=== PATIENT | male | born 1950 | race Caucasian/White ===

== ENCOUNTER → 2019-05-23 | Outpatient (REF) | payer MEDICARE, BC ==
[~2019-05-23] MED LIST: /BACIOPOI TOP; /CIPR75TA OR; ACET500C OR; AMPI500C OR; ASPI81TA83 OR; ASPI81TA85 PO; AZOPT OU; BRIM0.2S OU; CALC1TAB27 PO; CALCCHW12 OR; CALCIUM 600 MG PO; CALCIUM OR; CEFD1CAP8 PO; CERACRE EX; CERAVE TOP; CLOBETASOL TOP; FLUOROURACIL; FOSA35TA OR; LATA0.0013 OU; LEFL20TA PO; LEFLUNOMIDE; LOPR50TA OR; METO1TAB63 PO; METR500T10 PO; MUPIROCIN OINTMENT TOP; NEXI1CAP3 OR; NEXI1CAP3 PO; NEXI40CA PO; ONDA-1 OR; OPTI0.5D5 OU; PRED5TA PO; PRED5TAB OR; PROG1CAP10 PO; PROG1CAP2 OR; PROG1CAP2 PO; REFR1DRO6 OU; SILD50TA OR; SIMV40TA2 OR; SIMV40TA2 PO; TUMS500C PO; VIT D 2000 OR; VIT D OR; VIT D PO; VIT D3 PO; VITA-122 PO; XALATAN OU; [UNRECOGNIZED DRUG - CODE] OU; [UNRECOGNIZED DRUG - CODE] TOP; [UNRECOGNIZED DRUG - OTHER] TOP
== END ==
LOC: M LAB REF 10:54
PROVIDERS: ATTEND Physician Assistant
DX: J02.9 Acute pharyngitis, unspecified (principal)

== ENCOUNTER → 2019-07-10 | Outpatient (REF) | payer MEDICARE, BC ==
[~2019-07-10] MED LIST changes: -SIMV40TA2 PO; +SIMV40TA20 PO
== END ==
LOC: M LAB REF 18:37
PROVIDERS: ATTEND Dermatology
DX: D23.62 Other benign neoplasm of skin of left upper limb, including shoulder (principal)
CPT/HCPCS: 11102; 17000; 17003; 88305; 96574; G0463

== ENCOUNTER → 2019-08-20 | Outpatient (REF) | payer MEDICARE, BC ==
[2019-08-20 13:46] LABS: CHOLESTEROL RISK RATIO 3.657 (<5)
== END ==
LOC: M LAB REF 12:55
PROVIDERS: ATTEND Internal Medicine Nephrology
DX: E78.00 Pure hypercholesterolemia, unspecified (principal); Z94.0 Kidney transplant status

== ENCOUNTER → 2019-12-15 | Outpatient (REF) | payer MEDICARE, BC ==
[~2019-12-15] MED LIST changes: +PROG1CAP11 PO; -PROG1CAP2 PO
== END ==
LOC: M LAB REF 17:48
PROVIDERS: ATTEND Dermatology
DX: C44.529 Squamous cell carcinoma of skin of other part of trunk (principal); D04.5 Carcinoma in situ of skin of trunk; C44.629 Squamous cell carcinoma of skin of left upper limb, including shoulder; D04.62 Carcinoma in situ of skin of left upper limb, including shoulder
CPT/HCPCS: 11102; 11103; 17110; 88305; G0463

== ENCOUNTER → 2019-12-21 | Outpatient (REF) | payer MEDICARE, BC ==
[~2019-12-21] MED LIST changes: -ASPI81TA85 PO; +ASPI81TA86 PO
== END ==
LOC: M LAB REF 16:49
PROVIDERS: ATTEND Internal Medicine Nephrology
DX: E78.00 Pure hypercholesterolemia, unspecified (principal); Z94.0 Kidney transplant status

== ENCOUNTER → 2020-01-07 | Outpatient (REF) | payer MEDICARE, BC | LOC: M LAB REF 10:54 | PROVIDERS: ATTEND Dermatology | DX: D04.62 Carcinoma in situ of skin of left upper limb, including shoulder (principal); L90.5 Scar conditions and fibrosis of skin ==

== ENCOUNTER → 2020-02-25 | Outpatient (CLI) | payer MEDICARE, BC ==
--- NOTE | 2020-03-04 15:38 | REP ---
BILATERAL LOWER EXTREMITY ARTERIAL DOPPLER ULTRASOUND HISTORY: Atherosclerosis. FINDINGS: Ankle brachial indices could not be achieved due to noncompressible vessels. [id number] multifocal plaquing is observed. In the right lower extremity, monophasic waveforms are noted a that tibioperoneal trunk and below. The right posterior tibial artery is occluded distally with revascularization. On the left, there is monophasic waveforms observed at and below the distal superficial femoral artery. A trickle of flow seen in the distal posterior tibial artery with very heavily calcified vessels. BILATERAL LOWER EXTREMITY ARTERIAL DOPPLER VELOCITY PSV RIGHT (cm/s) PSV LEFT (cm/s) SANDWICH PEDDLER 88 67 Profunda 67 60 Proximal SFA 69 83 Mid-SFA 114 72 Distal SFA 97 71 Popliteal 51 58 Proximal MARIBELL 27 22 Tibioperoneal trunk 49 80 Proximal SUSTAINABLE DEVELOPMENT POLICY ANALYST 44 46 Distal SUSTAINABLE DEVELOPMENT POLICY ANALYST Occluded and revascularized 30 Distal MARIBELL 60 84 MTDD
== END ==
LOC: M RAD 10:21
PROVIDERS: ATTEND Physician Assistant
DX: R09.89 Other specified symptoms and signs involving the circulatory and respiratory systems (principal); I70.203 Unspecified atherosclerosis of native arteries of extremities, bilateral legs; Z95.828 Presence of other vascular implants and grafts

== ENCOUNTER → 2020-03-25 | Outpatient (REF) | payer MEDICARE, BC | LOC: M LAB REF 17:28 | PROVIDERS: ATTEND Dermatology | DX: L90.5 Scar conditions and fibrosis of skin (principal) ==

== ENCOUNTER → 2020-04-06 | Outpatient (REF) | payer MEDICARE, BC | LOC: M LAB REF 15:06 | PROVIDERS: ATTEND Dermatology | DX: L57.0 Actinic keratosis (principal) ==

== ENCOUNTER → 2020-04-28 | Outpatient (REF) | payer MEDICARE, BC | LOC: M LAB REF 16:51 | PROVIDERS: ATTEND Internal Medicine Nephrology | DX: E78.00 Pure hypercholesterolemia, unspecified (principal); Z94.0 Kidney transplant status ==

== ENCOUNTER → 2020-05-31 | Outpatient (CLI) | payer MEDICARE, BC ==
[2020-05-31 11:32] LABS: HEMATOCRIT 45.3 % (42.0-52.0); HEMOGLOBIN 14.9 g/dl (13.5-17.5); MEAN CORPUSCULAR HEMOGLOBIN 30.2 pg (27.0-33.0); MEAN CORPUSCULAR HGB CONC 32.9 g/dl (32.0-36.5); MEAN CORPUSCULAR VOLUME 91.7 fl (80.0-96.0); PLATELET COUNT, AUTOMATED 258 10^3/uL (150-450); RED BLOOD COUNT 4.94 10^6/uL (4.30-6.10)
[2020-05-31 11:56] LABS: ALBUMIN 3.9 GM/DL (3.2-5.2); BILIRUBIN,DIRECT 0.2 MG/DL (0.0-0.2); BILIRUBIN,TOTAL 0.7 MG/DL (0.2-1.0); TOTAL PROTEIN 7.1 GM/DL (6.4-8.2)
== END ==
LOC: M WUC 08:04
PROVIDERS: ATTEND Dermatology
DX: D84.9 Immunodeficiency, unspecified (principal); Z79.899 Other long term (current) drug therapy
CPT/HCPCS: 36415; 80076; 84478; 85027; G0463

== ENCOUNTER → 2020-06-22 | Outpatient (REF) | payer MEDICARE, BC | LOC: M LAB REF 13:55 | PROVIDERS: ATTEND Dermatology | DX: C44.729 Squamous cell carcinoma of skin of left lower limb, including hip (principal) | CPT/HCPCS: 11102; 88305; 88342; G0463 ==

== ENCOUNTER → 2020-06-30 | Outpatient (CLI) | payer MEDICARE, BC ==
[2020-06-30 09:42] LABS: HEMATOCRIT 44.4 % (42.0-52.0); HEMOGLOBIN 14.5 g/dl (13.5-17.5); MEAN CORPUSCULAR HEMOGLOBIN 30.2 pg (27.0-33.0); MEAN CORPUSCULAR HGB CONC 32.7 g/dl (32.0-36.5); MEAN CORPUSCULAR VOLUME 92.5 fl (80.0-96.0); PLATELET COUNT, AUTOMATED 220 10^3/uL (150-450); WHITE BLOOD COUNT 9.7 10^3/uL (4.0-10.0)
[2020-06-30 09:50] LABS: ALBUMIN 3.6 GM/DL (3.2-5.2); BILIRUBIN,DIRECT 0.2 MG/DL (0.0-0.2); BILIRUBIN,TOTAL 0.8 MG/DL (0.2-1.0); TOTAL PROTEIN 6.2 GM/DL (6.4-8.2)
== END ==
LOC: M WUC 08:02
PROVIDERS: ATTEND Dermatology
DX: Z85.828 Personal history of other malignant neoplasm of skin (principal); Z79.899 Other long term (current) drug therapy

== ENCOUNTER → 2020-07-12 | Outpatient (REF) | payer MEDICARE, BC | LOC: M LAB REF 14:28 | PROVIDERS: ATTEND Dermatology | DX: C44.729 Squamous cell carcinoma of skin of left lower limb, including hip (principal) ==

== ENCOUNTER → 2020-07-29 | Outpatient (REF) | payer MEDICARE, BC | LOC: M LAB REF 17:05 | PROVIDERS: ATTEND Internal Medicine Nephrology | DX: E78.00 Pure hypercholesterolemia, unspecified (principal); Z94.0 Kidney transplant status ==

== ENCOUNTER 2020-10-11 08:31 | Observation (INO) | payer MEDICARE, BC ==
[~2020-10-11] VITALS: Ht 177.8 cm; Wt 105.0 kg
[2020-10-11 09:14] LABS: BASO % 0.4 % (0.0-1.0); EOS # 0.2 10^3/uL (0.0-0.5); HEMATOCRIT 43.9 % (42.0-52.0); HEMOGLOBIN 14.6 g/dl (13.5-17.5); LYMPH # 0.9 10^3/uL (1.5-5.0); MEAN CORPUSCULAR HEMOGLOBIN 31.2 pg (27.0-33.0); MEAN CORPUSCULAR HGB CONC 33.3 g/dl (32.0-36.5); MEAN CORPUSCULAR VOLUME 93.8 fl (80.0-96.0); MONO # 1.1 10^3/uL (0.0-0.8); MONO % 9.5 % (2.0-8.0); NEUTROPHILS # 8.9 10^3/uL (1.5-8.5); NEUTROPHILS % 79.4 % (36.0-66.0); PLATELET COUNT, AUTOMATED 215 10^3/uL (150-450); RED BLOOD COUNT 4.68 10^6/uL (4.30-6.10); WHITE BLOOD COUNT 11.2 10^3/uL (4.0-10.0)
--- NOTE | 2020-10-11 09:34 | REP ---
INDICATION: trauma. COMPARISON: None. TECHNIQUE: Axial CT images with multiplanar reformations. FINDINGS: No acute bleed or fracture. Ventricles, cisterns and sulci within normal limits. No mass effect or midline shift. No abnormal fluid collections. Paranasal sinuses and mastoid air cells are clear. Note made of high density material superficially around the temporalis muscles bilaterally. This may represent surgical material. There is a focus of skin thickening and increased density in the left occipital lobe region, which is cutaneous and subcutaneous. This is best seen on image 20 series 201, measures about 8mm by 3mm). Dermal malignancy such as melanoma may have a similar appearance. IMPRESSION: 1. No acute or posttraumatic findings. 2. Note made of a focus of skin thickening of the scalp as described above. Dermal malignancy such as melanoma may have a similar appearance. Clinical correlation suggested. <Electronically signed by Bharat Hussein > 10/11/20 [id number]
[2020-10-11 09:46] LABS: BLOOD UREA NITROGEN 37 MG/DL (7-18); CALCIUM LEVEL 9.3 MG/DL (8.8-10.2); CARBON DIOXIDE LEVEL 32 MEQ/L (21-32); CHLORIDE LEVEL 106 MEQ/L (98-107); CREATININE FOR GFR 2.09 MG/DL (0.70-1.30); GLOMERULAR FILTRATION RATE 33.8 (>49); GLUCOSE, FASTING 107 MG/DL (70-100); MAGNESIUM LEVEL 3.1 MG/DL (1.8-2.4); POTASSIUM SERUM 3.9 MEQ/L (3.5-5.1); SODIUM LEVEL 141 MEQ/L (136-145)
[2020-10-11] MEDS ORDERED: BOOSTRIX/ADACEL VACCINE (DIPHTH/PERTUSS/ACELL/TETANUS) 0.5ML SYR IM ONE (09:50)
[2020-10-11 10:00] LABS: CK-MB VALUE MASS 1.4 NG/ML (<3.6); CPK CREATINE PHOSPHOKINASE 62 U/L (39-308); MB/CK RELATIVE INDEX 2.26 (< OR =4)
[2020-10-11] MEDS ORDERED: BACITRACIN OINTMENT 30GM TUBE TOP PRN (10:00)
[2020-10-11 10:26] LABS: RSV AMPLIFICATION NEGATIVE (NEGATIVE)
[2020-10-11] MEDS ORDERED: NS 500 ML IV ONE (10:30)
[2020-10-11 10:31] LABS: TROPONIN I < 0.02 NG/ML (< 0.10)
[2020-10-11] MEDS ORDERED: FURO20TA2 PO ×2 (10:45)
[2020-10-11] MEDS ORDERED: OMEP-218 PO (10:45)
[2020-10-11] MEDS ORDERED: AMLO1TAB24 PO (10:45)
[2020-10-11] MEDS ORDERED: SPIR-10 PO (10:45)
[2020-10-11] MEDS ORDERED: ROCA0.5C PO (10:45)
[2020-10-11] MEDS ORDERED: BRIM0.2S13 OU (10:45)
[2020-10-11] MEDS ORDERED: LATA0.0015 OU (10:45)
[2020-10-11] MEDS ORDERED: METO50TA7 PO (10:45)
[2020-10-11] MEDS ORDERED: TIMO0.5S29 OU (10:45)
[2020-10-11] MEDS ORDERED: TACR1CAP3 PO (10:45)
[2020-10-11] MEDS ORDERED: TADA5TAB PO (10:45)
[2020-10-11] MEDS ORDERED: ASPI81TA27 PO (10:45)
[2020-10-11] MEDS ORDERED: D31000TA2 PO (10:45)
[2020-10-11] MEDS ORDERED: PRED5TA PO (10:46)
[2020-10-11] MEDS ORDERED: GLUCOSE 4GM CHEW TABLET PO PRN (12:45)
[2020-10-11] MEDS ORDERED: DEXTROSE 50% 50 ML SYRINGE IV PRN (12:45)
[2020-10-11] MEDS ORDERED: GLUCAGON INJ 1MG VIAL SC PRN (12:45)
[2020-10-11 15:12] VITALS: BP_SYST 108; BP_SYST 120; BP_SYST 98; BP_DIAS 38; BP_DIAS 50; BP_DIAS 52
[2020-10-11] MEDS ORDERED: HumaLOG INSULIN (NovoLOG) PER UNIT SC SCH ×2 (17:30→21:00)
--- NOTE | 2020-10-11 17:31 | REP ---
INDICATION: WILLIAM? history of renal and pancreas transplant. COMPARISON: None. TECHNIQUE: Multiple sonographic images of the kidneys. Study includes Doppler images. Patient reportedly has a transplant kidney on the left. The right [place] kidney measures 5.2 x 2.0 x 2.8 cm. The left [place] kidney measures 5.9 x 2.2 x 2.8 cm. The [place] kidneys are markedly atrophic. The transplant kidney measures 10.8 x 6.0 x 5.8 cm and is normal size. There is mild hydronephrosis in the transplanted kidney. There is no hydroureter. There is no calculus in the transplant kidney There is no solid or cystic mass in the transplant kidney. With color Doppler ultrasound there is vascular flow in the transplant kidney cortex. There are no calculi or solid or cystic masses in the [place] kidneys. There is no hydronephrosis in the [place] kidneys. Bladder: No bladder wall polyps or nodules are identified. FINDINGS: The [place] right and left kidneys are markedly atrophic but otherwise unremarkable. There is a transplant kidney on the left that is normal size and otherwise unremarkable. There is a mild hydronephrosis in the transplant kidney. IMPRESSION: There is a transplant kidney on the left as described. There is mild hydronephrosis of the transplant kidney. The [place] kidneys are markedly atrophic. <Electronically signed by Grant Zamorano > 10/11/20 [id number]
--- NOTE | 2020-10-11 17:59 | ECGEPIP ---
[facility] - ED Test Date: 2020-10-11 Pat Name: KWAME FRANCIS Department: Room: - Gender: Male Manager Urology: Arnaud WOOD : 1950 Requested By: Mayra Granados Order Number: [id number] Reading MD: Mayra Granados Measurements Intervals [place] Rate: 61 P: 58 MO: 168 QRS: -4 QRSD: 74 T: -1 QT: 462 QTc: 465 Interpretive Statements Normal sinus rhythm Inferior infarct , age undetermined prolonged qtc no prior Electronically Signed on 10-11-2020 17:59:26 EDT by Mayra Granados
[2020-10-11] MEDS: TIMOLOL MALEATE 0.5% OPHTH SOLN 5 ML OU SCH (18:16)
[2020-10-11] MEDS: BRIMONIDINE 0.15% OPHTH SOLN 5 ML OU SCH (18:16)
[2020-10-11] MEDS ORDERED: NS 1,000 ML IV SCH (18:20)
--- NOTE | 2020-10-11 18:57 | HPEPDOC ---
General Date of Admission Oct 11, 2020 at 12:32 Date of Service: Oct 11, 2020 Chief Complaint The patient is a 69-year-old male admitted with a reason for visit of Syncope, Face Lacerations. Source: Patient, Family History of Present Illness Mr. Hayes is a 69 year old male with hypertension and kidney and pancreatic transplantation who presents with syncope. Patient has been feeling well up to today. He was preparing to use the toilet when he suddenly blacked out and woke up on the ground. His heard him fall and had him stay on the ground as she called for EMS. Patient does remember lightheadedness and dizziness before the fall. When EMS arrived, they tried to sit him up, but he passed out again and was brought to the ED. When in the ED. Patient was orthostatic positive, but otherwise, no tachycardia or fever. Patient reports no changes in appetite or oral intake. Patient also reports no recent changes in medications. Otherwise, patient denies chest pain, dyspnea, abdominal pain, dysuria, or diarrhea. He does report an episode of nausea and vomiting after the first syncopal event, but now has resolved. Otherwise, lab work up was significant for creatinine of 2.09. Last creatinine was 2016 which was 1.42. Nephrology was consulted, recommendations appreciated. Home Medications Scheduled Amlodipine Besylate (Amlodipine Besylate) 5 Mg Tablet, 5 MG PO QHS, (Reported) Aspirin (Aspirin EC) 81 Mg Tablet.dr, 81 MG PO DAILY, (Reported) Brimonidine Tartrate (Brimonidine Tartrate) 0.2% 5ML Drops, 1 DROP OU BID, (Reported) 0800, 1800 Calcitriol (Rocaltrol) 0.5 Mcg Capsule, 0.5 MCG PO DAILY, (Reported) Cholecalciferol (Vitamin D3) (Vitamin D3) 1,000 Unit Tablet, 4,000 UNITS PO DAILY, (Reported) Furosemide (Furosemide) 20 Mg Tablet, 40 MG PO QAM, (Reported) Furosemide (Furosemide) 20 Mg Tablet, 20 MG PO DAILY, (Reported) TAKES AT NOON Latanoprost/Pf (Latanoprost 0.005% Eye Drop) 7.5 Ml Drops, 1 DROP OU QHS, (Reported) Metoprolol Tartrate (Metoprolol Tartrate) 50 Mg Tablet, 50 MG PO BID, (Reported) Omeprazole (Omeprazole) 20 Mg Capsule.dr, 20 MG PO Q2D, (Reported) Prednisone (Prednisone) 5 Mg Tablet, 5 MG PO DAILY, (Reported) Simvastatin (Simvastatin) 40 Mg Tab, 40 MG PO QHS, (Reported) Spironolactone (Spironolactone) 25 Mg Tablet, 25 MG PO BID, (Reported) Tacrolimus (Tacrolimus) 1 Mg Capsule, 1 MG PO BID, (Reported) Tadalafil (Tadalafil) 5 Mg Tablet, 5 MG PO QHS, (Reported) Timolol Maleate (Timolol Maleate) 0.5% 5ML Drops, 1 DROP OU BID, (Reported) 0800, 1800 Allergies Coded Allergies: metoclopramide (Verified Allergy, Unknown, 10/11/20) Past Medical History Medical History 1. Diabetes mellitus 2. Hyperlipidemia 3. Arthritis 4. Stroke 5. Neuropathy 6. CKD 7. Hypertension Surgical History 1. Left kidney transplant 1988 2. Kidney and pancreas transplant 2007 3. Two toe am Family History Father: History of skin cancer Mother: History of Parkinson's disease and dementia Social History * Smoker: Denies Alcohol: Denies Drugs: denies A-FIB/CHADSVASC A-FIB History Current/History of A-Fib/PAF?: No Review of Systems Constitutional: Denies: Chills, Fever Eyes: Denies: Vision change ENT: Denies: Sore Throat Skin: Reports: Other (Facial lacerations from fall) Pulmonary: Denies: Dyspnea Cardiovascular: Reports: Lt Headedness; Denies: Chest Pain Gastrointestinal: Reports: Nausea (After fall), Vomiting (After fall); Denies: Abdominal Pain, Diarrhea Genitourinary: Denies: Dysuria Hematologic: Reports: Bruising (From fall) Neurological: Reports: Other Symptoms (Neuropathy from knee down and elbow down) Psych: Denies: Anxiety, Depression Physical Examination General Exam: Positive: Alert, Cooperative Eye Exam: Positive: EOMI; Negative: Sclera icteric ENT Exam: Positive: Other ENT (Central forhead laceraction, laceration above lip) Neck Exam: Positive: Supple Chest Exam: Positive: Clear to auscultation; Negative: Rales, Rhonchi, Wheezing Heart Exam: Positive: Rate Normal, Regular Rhythm Abdomen Exam: Positive: Normal bowel sounds, Soft; Negative: Tenderness Extremity Exam: Positive: Edema (Very mild pitting edema) Neuro Exam: Positive: Normal Speech Psych Exam: Positive: Mental status NL, Mood NL Vital Signs Vital Signs Date Time Temp Pulse Resp B/P (MAP) Pulse Ox O2 Delivery O2 Flow Rate FiO2 10/11/20 14:53 97.5 63 123/60 (81) 10/11/20 14:42 16 97 10/11/20 08:43 Room Air Laboratory Data Labs 24H Laboratory Tests 2 10/11/20 09:04: Immature Granulocyte % (Auto) 0.7, Neutrophils (%) (Auto) 79.4H, Lymphocytes (%) (Auto) 8.0L, Monocytes (%) (Auto) 9.5H, Eosinophils (%) (Auto) 2.0, Basophils (%) (Auto) 0.4, Neutrophils # (Auto) 8.9H, Lymphocytes # (Auto) 0.9L, Monocytes # (Auto) 1.1H, Eosinophils # (Auto) 0.2, Basophils # (Auto) 0.0, Nucleated Red Blood Cells % (auto) 0.0, Anion Gap 3L, Glomerular Filtration Rate 33.8L, Calcium Level 9.3, Magnesium Level 3.1H, Total Creatine Kinase 62, Creatine Kinase MB 1.4, Creatine Kinase MB Relative Index 2.26, Troponin I < 0.02, Thyroid Stimulating Hormone (TSH) 3.550 10/11/20 09:37: Coronavirus (COVID-19)(PCR) NEGATIVE, Influenza Type A (RT-PCR) NEGATIVE, Influenza Type B (RT-PCR) NEGATIVE, Respiratory Syncytial Virus (PCR) NEGATIVE CBC/BMP Laboratory Tests 10/11/20 09:04 Microbiology Microbiology 10/11/20 Blood Culture, Received Pending Assessment/Plan Mr. Hayes is a 69 year old male with hypertension and kidney and pancreatic transplantation who presents with syncope. Patient is orthostatic positive with a diastolic drop >10. Systolic did drop >20 when comparing supine and standing. Will hold antihypertensive medications which include amlodipine, furosemide, met oprolol tartrate, spironolactone, and tadalafil. Will give him gentle fluids due to his CKD. Syncope work up started with telemetry and echocardiogram ordered. Nephrology consulted for possible WILLIAM on CKD. Recommendations appreciated. Plan / VTE VTE Prophylaxis Ordered?: Yes Plan Plan 1. Syncopal event -Orthostatic positive -On 5 different medications which can cause orthostatic hypotension. Holding amlodipine, furosemide, metoprolol tartrate, spironolactone, and tadalafil -Monitor on Tele -Echocardiogram tomorrow -Gentle IVF due to CKD 2. Renal transplant -History of renal transplant in 2007 -Continue tacrolimus and prednisone -Nephrology consulted, recommendations appreciated 3. Possible WILLIAM on CKD -Unknown baseline -Creatinine elevated compared to prior -Nephrology consulted, recommendations appreciated -Holding furosemide and spironolactone 4. Glaucoma -Continue latanoprost, timolol, and brimonidine 5. Hyperlipidemia -Continue simvastatin 6. Skin cancer -Follow with dermatology -CT head demonstrates focus of skin thickening and increased density in the left occipital region suspicious for malignancy -I could not see this lesion physically, but would need to be seen by Dermatology outpatient 7. DVT ppx -SCD and TEDs Disposition: Unclear if creatinine is close to baseline or if it represents acute injury. Nephrology consulted and recommendations appreciated. If creatinine is close to baseline, and work up for syncope is unremarkable, possible discharge tomorrow. DORON ATKINSON DO Oct 11, 2020 15:17
[2020-10-11 20:00] VITALS: BP 132/60
[2020-10-11] MEDS: LATANOPROST 0.005% OPHTH SOLN 2.5 ML OU SCH (20:50)
[2020-10-11] MEDS: TACROLIMUS 1 MG CAP (J7507) PO SCH (20:50)
[2020-10-11] MEDS: SIMVASTATIN 40 MG TAB PO SCH (20:50)
[2020-10-12] VITALS: BP 118/48
[2020-10-12 04:00] VITALS: BP 113/52
[2020-10-12 05:33] LABS: HEMATOCRIT 40.9 % (42.0-52.0); HEMOGLOBIN 13.7 g/dl (13.5-17.5); MEAN CORPUSCULAR HEMOGLOBIN 31.5 pg (27.0-33.0); MEAN CORPUSCULAR HGB CONC 33.5 g/dl (32.0-36.5); PLATELET COUNT, AUTOMATED 204 10^3/uL (150-450); RED BLOOD COUNT 4.35 10^6/uL (4.30-6.10); WHITE BLOOD COUNT 11.3 10^3/uL (4.0-10.0)
[2020-10-12 05:49] LABS: CALCIUM LEVEL 8.9 MG/DL (8.8-10.2); CREATININE FOR GFR 1.98 MG/DL (0.70-1.30); POTASSIUM SERUM 3.7 MEQ/L (3.5-5.1)
[2020-10-12 07:05] VITALS: BP 138/72
[2020-10-12] MEDS ORDERED: FUROSEMIDE 20 MG TAB PO SCH ×2 (09:00)
[2020-10-12 09:31] LABS: APPEARANCE, URINE CLEAR (CLEAR); BACTERIA, URINE AUTO NEGATIVE (NEGATIVE); BILIRUBIN, URINE AUTO NEGATIVE (NEGATIVE); BLOOD, URINE BLOOD NEGATIVE (NEGATIVE); COLOR, URINE YELLOW (YELLOW); GLUCOSE, URINE (UA) AUTO NEGATIVE (NEGATIVE); KETONE, URINE AUTO NEGATIVE (NEGATIVE); LEUKOCYTE ESTERASE, URINE AUTO NEGATIVE (NEGATIVE); MUCUS, URINE SMALL (NEGATIVE); NITRITE, URINE AUTO NEGATIVE (NEGATIVE); PROTEIN, URINE AUTO NEGATIVE (NEGATIVE); RBC, URINE AUTO 2 /HPF (0-3); SPECIFIC GRAVITY URINE AUTO 1.011 (1.002-1.035); SQUAMOUS EPITHELIAL CELL UR AU 0 /HPF (0-6); UROBILINOGEN, URINE AUTO 0.2 mg/dL (0.0-2.0); WBC, URINE AUTO 0 /HPF (0-3)
[2020-10-12] MEDS: CALCITRIOL 0.25 MCG CAP (S0169) PO SCH (09:48)
[2020-10-12] MEDS: ASPIRIN 81MG ENTERIC TABLET PO SCH (09:48)
[2020-10-12] MEDS: TACROLIMUS 1 MG CAP (J7507) PO SCH ×2 (09:48→21:26)
[2020-10-12] MEDS: predniSONE 5 MG TAB PO SCH (09:49)
[2020-10-12] MEDS: BRIMONIDINE 0.15% OPHTH SOLN 5 ML OU SCH ×2 (09:49→17:43)
[2020-10-12] MEDS: VITAMIN D 1,000 INTERNATIONAL UNITS TABLET PO SCH (09:49)
[2020-10-12] MEDS: TIMOLOL MALEATE 0.5% OPHTH SOLN 5 ML OU SCH ×2 (09:49→17:43)
[2020-10-12 11:30] VITALS: BP 124/69
[2020-10-12 15:16] VITALS: BP 124/56
[2020-10-12 20:00] VITALS: BP 159/77
[2020-10-12] MEDS: SIMVASTATIN 40 MG TAB PO SCH (21:26)
[2020-10-12] MEDS: LATANOPROST 0.005% OPHTH SOLN 2.5 ML OU SCH (21:26)
--- NOTE | 2020-10-12 22:55 | IPNPDOC ---
Subjective Date Seen The patient was seen on 10/12/20. Subjective Chief Complaint/HPI Mr. Hayes is a 69 year old male with hypertension and kidney and pancreatic transplantation who presents with syncope. No events on telemetry. This morning, he denies any chest pain, dyspnea, or lightheadedness. Discussed case with Nephrology. Patient does have WILLIAM and creatinine is now trending downwards. His hypotension is most likely from his tadalafil which he was taking daily instead of as needed. Objective Physical Examination General Exam: Positive: Alert, Cooperative Eye Exam: Positive: EOMI; Negative: Sclera icteric ENT Exam: Positive: Other ENT (Central forhead laceraction, laceration above lip) Neck Exam: Positive: Supple Chest Exam: Positive: Clear to auscultation; Negative: Rales, Rhonchi, Wheezing Heart Exam: Positive: Rate Normal, Regular Rhythm Abdomen Exam: Positive: Normal bowel sounds, Soft; Negative: Tenderness Extremity Exam: Positive: Edema (Very mild pitting edema) Neuro Exam: Positive: Normal Speech Psych Exam: Positive: Mental status NL, Mood NL Assessment /Plan Assessment Mr. Hayes is a 69 year old male with hypertension and kidney and pancreatic transplantation who presents with syncope. Patient is orthostatic positive with a diastolic drop >10. Systolic did drop >20 when comparing supine and standing. Will hold antihypertensive medications which include amlodipine, furosemide, metoprolol tartrate, spironolactone, and tadalafil. Will give him gentle fluids due to his CKD. Syncope work up started with telemetry and echocardiogram ordered. Nephrology consulted for WILLIAM on CKD. Recommendations appreciated. Patient's hypotension is most likely secondary to tadalafil daily. Continue to hold antihypertensives. Plan/VTE VTE Prophylaxis Ordered?: Yes Plan 1. Syncopal event -Orthostatic positive -On 5 different medications which can cause orthostatic hypotension. Holding amlodipine, furosemide, metoprolol tartrate, spironolactone, and tadalafil. Tadalafil taken daily is most likely causing his orthostatic hypotension. -Monitor on Tele -Echocardiogram ordered -Gentle IVF due to CKD 2. Renal transplant -History of renal transplant in 2007 -Continue tacrolimus and prednisone -Nephrology consulted, recommendations appreciated 3. WILLIAM on CKD -Baseline creatine 1.6 -Nephrology consulted, recommendations appreciated -Holding furosemide and spironolactone -IVF 4. Glaucoma -Continue latanoprost, timolol, and brimonidine 5. Hyperlipidemia -Continue simvastatin 6. Skin cancer -Follow with dermatology -CT head demonstrates focus of skin thickening and increased density in the left occipital region suspicious for malignancy -I could not see this lesion physically, but would need to be seen by Dermatology outpatient 7. DVT ppx -SCD and TEDs Disposition: pending improvement in renal function VS, I&O, 24H, Fishbone Vital Signs/I&O Vital Signs Date Time Temp Pulse Resp B/P (MAP) Pulse Ox O2 Delivery O2 Flow Rate FiO2 10/12/20 20:00 97.2 70 18 159/77 (104) 96 Room Air I&O- Last 24 Hours up to 6 AM 10/12/20 06:00 Intake Total 1820 ml Output Total 1400 ml Balance 420 ml Laboratory Data 24H LABS Laboratory Tests 2 10/12/20 04:59: Nucleated Red Blood Cells % (auto) 0.0, Anion Gap 5L, Glomerular Filtration Rate 36.0L, Calcium Level 8.9 10/12/20 09:13: Urine Color YELLOW, Urine Appearance CLEAR, Urine pH 6.0, Urine Specific [place] 1.011, Urine Protein NEGATIVE, Urine Glucose (Auto)(UA) NEGATIVE, Urine Ketones (Auto) NEGATIVE, Urine Blood NEGATIVE, Urine Nitrite NEGATIVE, Urine Bilirubin NEGATIVE, Urine Urobilinogen 0.2, Urine Leukocyte Esterase (Auto) NEGATIVE, Urine WBC (Auto) 0, Urine RBC (Auto) 2, Urine Hyaline Casts (Auto) 0, Urine Bacteria (Auto) NEGATIVE, Urine Squamous Epithelial Cells 0, Urine Mucus (Auto) SMALL, Urine Sperm (Auto) CBC/BMP Laboratory Tests 10/12/20 04:59 Microbiology Microbiology 10/11/20 Blood Culture - Preliminary, Resulted No growth after 24 hours . All specim... 10/11/20 Blood Culture - Preliminary, Resulted No growth after 24 hours . All specim... DORON ATKINSON DO Oct 12, 2020 22:55
[2020-10-13] VITALS: BP 141/77
[2020-10-13 04:00] VITALS: BP 157/78
[2020-10-13 05:43] LABS: HEMOGLOBIN 12.7 g/dl (13.5-17.5); MEAN CORPUSCULAR HEMOGLOBIN 31.1 pg (27.0-33.0); MEAN CORPUSCULAR HGB CONC 33.4 g/dl (32.0-36.5); MEAN CORPUSCULAR VOLUME 92.9 fl (80.0-96.0); PLATELET COUNT, AUTOMATED 201 10^3/uL (150-450); RED BLOOD COUNT 4.09 10^6/uL (4.30-6.10); WHITE BLOOD COUNT 9.2 10^3/uL (4.0-10.0)
[2020-10-13 06:05] LABS: CALCIUM LEVEL 9.3 MG/DL (8.8-10.2); CREATININE FOR GFR 1.78 MG/DL (0.70-1.30); GLOMERULAR FILTRATION RATE 40.7 (>49); POTASSIUM SERUM 3.6 MEQ/L (3.5-5.1)
[2020-10-13 07:14] VITALS: BP 119/67
[2020-10-13] MEDS: TIMOLOL MALEATE 0.5% OPHTH SOLN 5 ML OU SCH (07:58)
[2020-10-13] MEDS: BRIMONIDINE 0.15% OPHTH SOLN 5 ML OU SCH (07:58)
[2020-10-13] MEDS: TACROLIMUS 1 MG CAP (J7507) PO SCH (08:01)
[2020-10-13] MEDS: VITAMIN D 1,000 INTERNATIONAL UNITS TABLET PO SCH (08:01)
[2020-10-13] MEDS: CALCITRIOL 0.25 MCG CAP (S0169) PO SCH (08:01)
[2020-10-13] MEDS: predniSONE 5 MG TAB PO SCH (08:01)
[2020-10-13] MEDS: ASPIRIN 81MG ENTERIC TABLET PO SCH (08:01)
--- NOTE | 2020-10-13 10:16 | CR ---
CONSULTATION DATE: 10/12/2020 REQUESTING PHYSICIAN: Aaron Ramires MD CONSULTING PHYSICIAN: Gina Joyce MD REASON FOR CONSULTATION: Renal allograft status, syncope and acute renal failure. HISTORY OF PRESENT ILLNESS: Mr. Bernardino Hayes is a 69-year-old male with past medical history of simultaneous pancreas-kidney transplant. He follows up with Dr. Ada Tubbs as outpatient in nephrology clinic, history of hypertension, erectile dysfunction and multiple other comorbidies as mentioned below. The patient got up in the morning and he fell in the bathroom. He hit his face and he had a laceration to this scalp, forehead and lip injury. He was brought by emergency medical service (EMS). On arrival in the emergency room, the patient was found to be orthostatic. His blood pressures are very low. The patient denied any fevers or chills, rigors, cough, shortness of breath or dysuria or arrival. His baseline creatinine is around 1.5 as per our records. His creatinine on arrival was 2. Nephrology service was called for further help in the management of this patient. I discussed the case with the admitting physician yesterday. Decision was made to hold his entire hypertensive medications and give this patient gentle IV fluid hydration. Sepsis workup was also sent. I examined and evaluated the patient today morning at the bedside. He reports that he is feeling much better today as compared with yesterday and the patient did mention to me that she was prescribed tadalafil for erectile dysfunction by Dr. Tubbs and instead of using it only on as needed basis before the sexual activity, he was taking it everyday by mistake. PAST MEDICAL HISTORY: Past medical history of diabetes mellitus type 2, hyperlipidemia, peripheral neuropathy, renal allograft status, hypertension, erectile dysfunction, multiple skin cancers in the past. PAST SURGICAL HISTORY: Status post simultaneous pancreas-kidney transplant in 2007. He had a left kidney transplant in 1988 as well and that kidney was donated by his mother, which later on failed after many years. He has 2 toe amputations and he has had multiple skin cancer lesions removed over the course of many years. ALLERGIES: He is allergic to METOCLOPRAMIDE. FAMILY HISTORY: Father has a history of skin cancers; mother has history of Parkinson's disease and dementia. SOCIAL HISTORY: He denies any smoking, illicit drug abuse or alcohol abuse. REVIEW OF SYSTEMS: Constitutional: He does report dizziness and recent falls. Eyes: He denies any blurry vision, double vision. ENT: Denies any dysphagia, odynophagia. Cardiovascular: He does report recent syncope. Respiratory: He denies any shortness of breath or cough. Gastrointestinal (GI): Denies any nausea or vomiting. Genitourinary: Denies any dysuria or hematuria. Musculoskeletal: Denies any muscle aches and pains. Skin: He reports recent laceration and multiple skin cancer lesions in the past. Hematological/oncological: Denies any easy bleeding or bruising. GRAIN SHOVELER: He reports syncope. All other review of systems is negative. PHYSICAL EXAMINATION: General; The patient is awake, alert and oriented x3, lying in bed. Head and neck examination: The patient has chuckie in the forehead. He has an injury on the upper lip and on the forehead as well. Vital signs: Temperature is 98.5 degrees Fahrenheit, blood pressure 124/56, pulse is 76, respiratory rate of 18, saturating 96% on room air. Intake and output: Urine output is recorded at 1.1 liter yesterday and 1.3 liters so far today since overnight. Cardiovascular: S1, S2 regular rate, 1+ edema of the bilateral lower extremities. Respiratory: Chest is clear to auscultation bilaterally. Bilateral equal air entry. No rales or rhonchi. Abdomen: Soft, positive bowel sounds. Old midline surgical scar is noted from a simultaneous kidney and pancreas transplant and previous surgical incision of the left groin is also noted from live donor kidney transplant. Musculoskeletal; 1+ edema of the bilateral lower extremities. Skin: Multiple precancer lesions and old cancer removal surgeries from the skin on multiple sites noted. GRAIN SHOVELER: No focal deficit. Power is 5/5 in all extremities. LABORATORY DATA: Complete blood count (CBC) showed a WBC of 11.3, hemoglobin 13.7, platelets are 204. Urinalysis is totally clean. There is no leukocyte esterase. No protein or blood. Basic metabolic panel (BMP) showed sodium 140, potassium 3.7, chloride 109, bicarbonate 26, BUN 36, creatinine is 1.9, it was 2 yesterday Toxicology: Tacrolimus level is pending. MICROBIOLOGY: Blood cultures are negative so far. IMAGING DATA: A renal ultrasound was done. Transplant kidney is normal in size. There was mild hydronephrosis of the transplant kidney. HOME MEDICATIONS: The patient's home medications include amlodipine 5mg daily, aspirin 81 mg by mouth daily, calcitriol 0.5 mcg by mouth daily, vitamin D 4000 units by mouth daily, Lasix 40 mg in the morning and 20 mg at noontime, metoprolol 50 mg by mouth twice a day, omeprazole 20 mg by mouth q 2 days, prednisone 5 mg by mouth daily, simvastatin 40 mg every night at bedtime, spironolactone 25 mg by mouth twice a day, tacrolimus 1 mg by mouth twice a day, tadalafil, he takes 5 mg by mouth every night at bedtime. CURRENT INPATIENT MEDICATIONS: The patient's medications include normal saline at 60 ml an hour was just stopped today morning, aspirin 81 mg by mouth daily, Alphagan eye drops twice a day, calcitriol 0.5 mcg by mouth daily. He was getting Lasix 40 and 20 dose, but it was held today morning. He is on prednisone 5mg by mouth daily, simvastatin 40 mg every night at bedtime, Prograf 1 mg by mouth twice a day, vitamin D 4000 units by mouth daily. ASSESSMENT AND PLAN: 1. Syncope, most likely it is secondary to multiple medications including home dose of amlodipine, use of diuretic at home and the patient's daily use of tadalafil, which I think is a mistake. The patient was advised to use it only on as needed basis. He was given gentle IV fluid hydration as well. Blood pressures are better. Slowly antihypertensives and diuretics will be started tomorrow morning. 2. Erectile dysfunction. The patient was advised to use tadalafil only on as needed basis, 30 minutes before sexual activity and this medicine is not suppose to be used every day unless the patient has history of pulmonary hypertension. 3. Lower extremity edema. Diuretics are on hold because of syncope. It will be restarted once blood pressures get better. 4. Renal allograft status. Continue current tacrolimus and prednisone for now. 5. History of multiple squamous cell cancer lesions. The patient is on tacrolimus. I advised the patient to discuss with Dr. Tubbs as outpatient to see if his immunosuppression can be changed. 6. Secondary hyperparathyroidism. Continue current dose of calcitriol 0.5 mcg by mouth daily 7. Hyperlipidemia. Okay to continue current dose of simvastatin 40 mg by mouth every night at bedtime. 8. History of pancreatic transplant. The patient is on tacrolimus and prednisone at this time. Tacrolimus level is pending. Glucose levels are within the acceptable range. 9. Acute renal failure, superimposed on chronic kidney disease, most likely secondary to low blood pressures, syncope. He was given gentle fluid hydration. Renal function is expected to improve now. Hold the furosemide and spironolactone at this time.
[2020-10-13] MEDS ORDERED: TADA5TAB PO (11:18)
[2020-10-13 11:26] VITALS: BP 150/69
--- NOTE | 2020-10-13 12:37 | ECHO ---
DATE OF PROCEDURE: 10/12/2020 Age: 69 Gender: Male Height: 70 inches Weight: 209 pounds Body Surface Area: 2.13 m2 PATIENT LOCATION: Inpatient PCU Room 3212. REFERRING PHYSICIAN: Aaron Ramires DO. INDICATION: Syncope. MEASUREMENTS: 2D Measurements: RV - 3.6 cm LV 4.1 cm Septum 1.6 cm Posterior wall 1.4 cm Aortic Root 3.4 cm LA 4.2 cm LVEF 75% Doppler Measurements: AV 1.69 m/s LVOT 1.17 m/s LVOT diameter 2.0 cm MV-E 85, A 108, EA ratio 0.8 Early mitral deceleration time 214 msec E prime medial 5.4, A prime medial 10, E prime lateral 6.9 Average E/E prime ratio 13.8/PCWP 19 mmHg PV 0.9 m/s Pulmonary artery acceleration time 150 msec RVSP 40 mmHg IVC Not clearly visualized. We used 10 mmHg as estimated central venous pressure. COMMENTS: Normal sinus rhythm without intraventricular conduction disturbance. M-mode and 2-dimensional echocardiography was performed with pulse, continuous wave, color flow, and tissue Doppler studies. Moderate left ventricular hypertrophy with asymmetrical septal involvement. Hyperkinetic LV wall motion. At least moderately dilated left atrium from the apical long axis and four chamber projections. Grade 1 LV diastolic dysfunction with slightly elevated estimated mean left atrial pressure. Normal right heart chamber sizes and wall motion with Doppler evidence of at least mild and possibly moderate pulmonary hypertension. Unable to visualize his inferior vena cava to more accurately define his central venous pressure. Normal aortic diameters. Mild aortic valvular sclerosis without functional aortic valvular abnormality. Moderate mitral annular calcification with slight thickening of the mitral leaflets but adequate leaflet excursion and no posterior systolic buckling. Trace to very mild mitral insufficiency. Normal appearing tricuspid valve with very mild insufficiency. No apparent intracardiac mass or pericardial effusion. MTDD
--- NOTE | 2020-10-13 22:08 | DS.PDOC ---
Discharge Summary General Date of Admission Oct 11, 2020 at 12:32 Date of Discharge Oct 13, 2020 Discharge Summary PROCEDURES PERFORMED DURING STAY: [None]. ADMITTING DIAGNOSES: 1. . DISCHARGE DIAGNOSES: 1. . COMPLICATIONS/CHIEF COMPLAINT: Syncope, Face Lacerations. HISTORY OF PRESENT ILLNESS: . HOSPITAL COURSE: . DISCHARGE MEDICATIONS: Please see below. ALLERGIES: Please see below. PHYSICAL EXAMINATION ON DISCHARGE: VITAL SIGNS: Please see below. GENERAL: HEENT: NECK: CARDIOVASCULAR EXAMINATION: RESPIRATORY EXAMINATION: ABDOMINAL EXAMINATION: EXTREMITIES: SKIN: NEUROLOGICAL EXAMINATION: PSYCHIATRIC EXAMINATION: LABORATORY DATA: Please see below. IMAGING: PROGNOSIS: ACTIVITY: [As tolerated]. DIET: DISCHARGE PLAN: DISPOSITION: Home, Self-Care. DISCHARGE INSTRUCTIONS: 1. . ITEMS TO FOLLOWUP ON ON OUTPATIENT: 1. . DISCHARGE CONDITION: [Stable]. TIME SPENT ON DISCHARGE: Greater than minutes. Vital Signs/I&Os Vital Signs Date Time Temp Pulse Resp B/P (MAP) Pulse Ox O2 Delivery O2 Flow Rate FiO2 10/13/20 11:26 97.2 72 18 150/69 (96) 97 Room Air I&O- Last 24 Hours up to 6 AM 10/13/20 06:00 Intake Total 1260 ml Output Total 1425 ml Balance -165 ml Laboratory Data Labs 24H Laboratory Tests 2 10/13/20 04:50: Nucleated Red Blood Cells % (auto) 0.0, Anion Gap 5L, Glomerular Filtration Rate 40.7L, Calcium Level 9.3 CBC/BMP Laboratory Tests 10/13/20 04:50 Microbiology Microbiology 10/11/20 Blood Culture - Preliminary, Resulted No Growth after 48 hours. All Specime... 10/11/20 Blood Culture - Preliminary, Resulted No Growth after 48 hours. All Specime... Discharge Medications Scheduled Aspirin (Aspirin EC) 81 Mg Tablet.dr, 81 MG PO DAILY, (Reported) Brimonidine Tartrate (Brimonidine Tartrate) 0.2% 5ML Drops, 1 DROP OU BID, (Reported) 0800, 1800 Calcitriol (Rocaltrol) 0.5 Mcg Capsule, 0.5 MCG PO DAILY, (Reported) Cholecalciferol (Vitamin D3) (Vitamin D3) 1,000 Unit Tablet, 4,000 UNITS PO DAILY, (Reported) Furosemide (Furosemide) 20 Mg Tablet, 40 MG PO QA, (Reported) Furosemide (Furosemide) 20 Mg Tablet, 20 MG PO DAILY, (Reported) TAKES AT NOON Latanoprost/Pf (Latanoprost 0.005% Eye Drop) 7.5 Ml Drops, 1 DROP OU QHS, (Reported) Omeprazole (Omeprazole) 20 Mg Capsule.dr, 20 MG PO Q2D, (Reported) Prednisone (Prednisone) 5 Mg Tablet, 5 MG PO DAILY, (Reported) Simvastatin (Simvastatin) 40 Mg Tab, 40 MG PO QHS, (Reported) Spironolactone (Spironolactone) 25 Mg Tablet, 25 MG PO BID, (Reported) Tacrolimus (Tacrolimus) 1 Mg Capsule, 1 MG PO BID, (Reported) Timolol Maleate (Timolol Maleate) 0.5% 5ML Drops, 1 DROP OU BID, (Reported) 0800, 1800 Scheduled PRN Tadalafil (Tadalafil) 5 Mg Tablet, 5 MG PO QHSP PRN for Erectile dysfunction Take as needed for erectile dysfunction, 30 min prior to intercourse Allergies Coded Allergies: metoclopramide (Verified Allergy, Unknown, 10/11/20) DORON ATKINSON DO Oct 13, 2020 22:08
--- NOTE | 2020-10-13 23:52 | IPN ---
NEPHROLOGY PROGRESS NOTE DATE: 10/13/2020 SUBJECTIVE: Patient was seen and examined at the bedside today morning. He is afebrile, hemodynamically stable. Blood pressures are better now. He denies any more dizziness and lightheadedness. Renal function is gradually improving. Creatinine is down to 1.7 today. He does report mild edema of the lower extremities and wants to know if he can start his diuretics. OBJECTIVE: VITAL SIGNS: Temperature 97.2 degrees Fahrenheit, blood pressure 150/69, pulse 72, respiratory rate 18, saturating 97% on room air. INTAKE AND OUTPUT: Urine output recorded as 1.6 liters yesterday and 600 mL so far today since overnight. Weight in the bed scale is 105 kg. PHYSICAL EXAMINATION: GENERAL: Patient is awake, alert, oriented x3. [place] on the scalp are noted. Healing laceration on the forehead is also noted. HEAD/NECK: Neck is supple. There is no JVD. CARDIOVASCULAR: S1, S2, regular rate. 1+ edema of the bilateral lower extremities was noted. RESPIRATORY: Chest is clear to auscultation bilaterally. Bilateral equal air entry. No rales or rhonchi. ABDOMEN: Soft, positive bowel sounds, nontender. No organomegaly. Old midline surgical scar is noted. MUSCULOSKELETAL: No clubbing or cyanosis. Pulses are 2+. MATERNITY FLOOR SUPERVISOR: No focal deficits. Power is 5/5 in all extremities. LABORATORY REVIEW: CBC showed WBC 9.2, hemoglobin 12.7, platelets 201,000. BMP showed sodium 143, potassium 3.6, chloride 110, bicarb 28, BUN 34, creatinine 1.7; it was 1.9 yesterday. Glucose level 81. CURRENT INPATIENT MEDICATIONS: Patient's medications were all reviewed by myself. There is no significant change in the medications today as compared to yesterday. ASSESSMENT AND PLAN: 1. Recent syncope and orthostatic hypotension: It was secondary to use of diuretics, Amlodipine, beta-liz and daily use of Tadalafil. All the antihypertensives are on hold. Blood pressures are better. Diuretics can be restarted and slowly beta-blockers and Amlodipine will be restarted as an outpatient. He will need to follow-up Dr. Tubbs within one week after discharge from the hospital. 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 Continue current dose of Tacrolimus and prednisone. 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 Continue current immunosuppression. Glucose levels are within the acceptable range. 4. Lower extremity edema: Restart home dose of Lasix and Spironolactone on discharge. 5. Acute renal failure superimposed on chronic kidney disease: It was secondary to syncope, hypotension, use of diuretics. Creatinine is improving and coming back to his baseline. His baseline creatinine is around 1.5. DISPOSITION: It is okay to discharge the patient from a nephrology standpoint. He would need to follow-up with Dr. Tubbs as an outpatient.
== END 2020-10-13 14:47 | disposition home or self-care (01) ==
LOC: EDBD 08:31 → M ED 08:31 → M ED INP 12:32 → ENRESERV 12:53 → M PCU 15:07
PROVIDERS: ADMIT Internal Medicine; ATTEND Internal Medicine
DX: R55 Syncope and collapse (principal); S01.01XA Laceration without foreign body of scalp, initial encounter; W19.XXXA Unspecified fall, initial encounter; Y92.002 Bathroom of unspecified non-institutional (private) residence as the place of occurrence of the external cause; Y93.9 Activity, unspecified; Y99.9 Unspecified external cause status; I12.9 Hypertensive chronic kidney disease with stage 1 through stage 4 chronic kidney disease, or unspecified chronic kidney disease; N18.9 Chronic kidney disease, unspecified; Z94.0 Kidney transplant status; Z94.83 Pancreas transplant status; E78.49 Other hyperlipidemia; E11.40 Type 2 diabetes mellitus with diabetic neuropathy, unspecified; Z79.82 Long term (current) use of aspirin; Z79.899 Other long term (current) drug therapy; Z79.52 Long term (current) use of systemic steroids; Z88.8 Allergy status to other drugs, medicaments and biological substances; Z86.73 Personal history of transient ischemic attack (TIA), and cerebral infarction without residual deficits
CPT/HCPCS: 12001; 36415; 70450; 76775; 80048; 80197; 81001; 82550; 82553; 83735; 84443; 84484; 85025; 85027; 87040; 87631; 90471; 90715; 93005; 93041; 93306; 94760; 96360; 99285; G0378; J7507

== ENCOUNTER → 2020-10-26 | Outpatient (REF) | payer MEDICARE, BC ==
[~2020-10-26] MED LIST changes: +AMLO1TAB24 PO; +ASPI81TA27 PO; +BRIM0.2S13 OU; +D31000TA2 PO; +FURO20TA2 PO; +LATA0.0015 OU; +METO50TA7 PO; +OMEP-218 PO; +ROCA0.5C PO; +SPIR-10 PO; +TACR1CAP3 PO; +TADA5TAB PO; +TIMO0.5S29 OU
== END ==
LOC: M LAB REF 13:55
PROVIDERS: ATTEND Dermatology
DX: L57.0 Actinic keratosis (principal); L57.8 Other skin changes due to chronic exposure to nonionizing radiation
CPT/HCPCS: 11104; 11105; 88305; G0463

== ENCOUNTER → 2020-11-01 | Outpatient (REF) | payer MEDICARE, BC | LOC: M LAB REF 17:03 | PROVIDERS: ATTEND Internal Medicine Nephrology | DX: E78.00 Pure hypercholesterolemia, unspecified (principal); Z94.0 Kidney transplant status ==

== ENCOUNTER → 2020-11-07 | Outpatient (CLI) | payer MEDICARE, BC ==
--- NOTE | 2020-11-07 18:19 | REP ---
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 Potential Mon overall overlying the left occipital scalp noted. COMPARISON: None. TECHNIQUE: Fifty-five minutes following the intravenous injection of a 14.0 mCi dose of F-18 FDG, three-dimensional PET scintigraphy is acquired from the skull vertex to the toes. Triplanar noncontrast CT scanning is acquired through the same anatomic range for attenuation correction, and image registration with scan parameters optimized to minimize radiation exposure to the patient. PET scintigraphy and CT datasets were fused and displayed on a workstation with multiplanar and projection display capability. FINDINGS: The head and neck soft tissues are unremarkable. No dermal or subdermal scalp hypermetabolic activity is seen. No eleonora hypermetabolic activity is seen in the head and neck soft tissues. There is mild normal variant skeletal muscle uptake about the shoulders. No abnormal hypermetabolic uptake is seen in the thorax. No eleonora mediastinal or hilar uptake is seen. No pulmonary parenchymal nodule or nodular uptake is seen. In the abdomen and pelvis, normal hepatic, splenic, gastrointestinal, and genitourinary FDG accumulation is seen. No abnormal hypermetabolic uptake is seen in the abdomen or pelvis. There is marked atrophy of the mohegan kidneys. 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 No abnormal hypermetabolic uptake is seen in the abdomen and pelvis. No abnormal skeletal uptake is observed. IMPRESSION: Negative PET scintigraphy. <Electronically signed by Vinayak Maradiaga > 11/07/20 [id number]
== END ==
LOC: M PLARAD 12:41
PROVIDERS: ATTEND Dermatology
DX: C43.4 Malignant melanoma of scalp and neck (principal)
CPT/HCPCS: 78816; A9552

== ENCOUNTER → 2020-12-06 | Outpatient (CLI) | payer MEDICARE, BC ==
--- NOTE | 2020-12-06 12:12 | REP ---
INDICATION: ASTSCL [place] ARTER CHARLY TECHNIQUE: Bilateral lower extremity arterial ultrasound. FINDINGS: All numeric values represent peak systolic velocities in cm\sec. On the right: The ankle brachial index is unobtainable TESTING SPECIALIST: 115 biphasic Profunda: 125 biphasic SFA proximal: 76 biphasic SFA mid: 103 biphasic SFA distal: 98 biphasic Popliteal: 60 biphasic MARIBELL proximal: 28 biphasic Tibioperoneal trunk: 25 biphasic LOADING MANAGER proximal: 41 biphasic LOADING MANAGER distal (revascularized): 44 biphasic MARIBELL distal: 24 monophasic On the left: The ankle brachial index is unobtainable TESTING SPECIALIST: 103 biphasic Profunda: 103 biphasic SFA proximal: 76 biphasic SFA mid: 71 biphasic SFA distal: 67/386 biphasic Popliteal: 36 biphasic MARIBELL proximal: Occluded Tibioperoneal trunk: Not seen LOADING MANAGER proximal: 13 monophasic LOADING MANAGER distal: 28 monophasic MARIBELL distal occluded Moderate to severe plaque formation was seen from the common femoral vein to the ankle on the right. The distal right LOADING MANAGER was seen to be occluded and revascularized with no significant stenosis seen in the revascularized segment. Moderate to severe plaque formation was seen in the left leg from the common femoral vein to the ankle. The proximal anterior tibial artery was seen to be occluded. IMPRESSION: As above <Electronically signed by Luis Dan > 12/06/20 [id number]
== END ==
LOC: M RAD 09:24
PROVIDERS: ATTEND Surgery Vascular Surgery
DX: I73.9 Peripheral vascular disease, unspecified (principal)